=== PATIENT | female | born 1930 | race Caucasian/White ===

== ENCOUNTER 2019-04-01 12:45 | Emergency (ER) | payer BC ==
[2019-04-01 12:54] VITALS: BP 162/69; PULSE 78; TEMP 98; BMI 19.1
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
[2019-04-02] MEDS ORDERED: ACETAMINOPHEN INJECTION 100 ML IVPB ONE (09:46)
== END 2019-04-01 14:43 | disposition home or self-care (01) ==
LOC: JERFT 12:45
DX: M25.552 Pain in left hip (principal); X50.0XXA Overexertion from strenuous movement or load, initial encounter; Y93.E9 Activity, other interior property and clothing maintenance; Y92.018 Other place in single-family (private) house as the place of occurrence of the external cause; Y99.8 Other external cause status; Z87.81 Personal history of (healed) traumatic fracture; I10 Essential (primary) hypertension; E11.9 Type 2 diabetes mellitus without complications; Z79.84 Long term (current) use of oral hypoglycemic drugs; Z79.82 Long term (current) use of aspirin; Z91.041 Radiographic dye allergy status
CPT/HCPCS: 73523-TC-FY; 73552-TC-LT-FY; 99281-25

== ENCOUNTER 2019-04-02 08:25 | Inpatient (IN) | payer BC ==
[2019-04-02] MEDS ORDERED: ACETAMINOPHEN 1000 MG/100 ML VIAL (NON FORMULARY) IVPB ONE (09:25)
[2019-04-02 09:49] LABS: BASO % 0.5 % (0-2.0); EOS % 1.5 % (0-4.5); HEMATOCRIT 38.8 % (32.4-45.2); HEMOGLOBIN 12.7 GM/dL (10.7-15.3); LYMPH % 16.5 % (8-40); MCH 30.4 pg (25.7-33.7); MCHC 32.7 g/dl (32.0-36.0); MEAN PLT VOLUME 7.1 fl (7.5-11.1); MONO % 4.4 % (3.8-10.2); NEUT % 77.1 % (42.8-82.8); PLATELET COUNT 293 K/MM3 (134-434); RBC 4.18 M/mm3 (3.60-5.2); RDW 14.4 % (11.6-15.6); WHITE BLOOD COUNT 6.6 K/mm3 (4.0-10.0)
[2019-04-02 10:26] LABS: ALBUMIN 3.9 g/dl (3.4-5.0); BILIRUBIN,TOTAL 0.4 mg/dL (0.2-1); BLOOD UREA NITROGEN 18.8 mg/dL (7-18); CALCIUM 10.2 mg/dL (8.5-10.1); CREATININE 0.7 mg/dL (0.55-1.3); POTASSIUM 4.1 mmol/L (3.5-5.1)
--- NOTE | 2019-04-02 10:52 | PDOC ---
Documentation entered by Veronica Rich SCRIBE, acting as scribe for Byron Orona MD. Byron Orona MD: This documentation has been prepared by the Layla cheatham Sammi, SCRIBE, under my direction and personally reviewed by me in its entirety. I confirm that the documentation accurately reflects all work, treatment, procedures, and medical decision making performed by me. History of Present Illness - General Chief Complaint: Chronic pain Stated Complaint: LT SIDE PAIN,WEAKNESS Time Seen by Provider: 04/02/19 08:40 - History of Present Illness Initial Comments: 04/02/19 09:28 The patient is an 88 year old female, with a PMH of HTN, HL, DM, L hip fracture (~3 years ago) and R sided sciatica, who presents to the emergency department for evaluation of left hip pain with radiation down the left lower extremity since Sunday. The patient states since being discharged from our ED yesterday, where she was evaluated for similar symptoms, her left hip and leg pain has been progressively worsening. She notes she attempted to get out of bed several times last night to use the bathroom but was having a difficult time, prompting her to put on a diaper. The patient states she attempted to get out of bed with the assistance of her walker this morning and experienced significant pain to her left hip/leg which she presents today for further evaluation. The patient reports taking her tylenol #3 and one dose of prednisone last night with short term relief. Denies trauma or injury. Denies any recent headaches, dizziness, focal weakness or numbness, chest pain, shortness of breath, headaches, abdominal pain, nausea, vomiting, diarrhea, urinary symptoms or lower extremity edema. PCP: Nila Past History - Past Medical History Allergies/Adverse Reactions: Allergies Allergy/AdvReac Type Severity Reaction Status Date / Time Iodinated Contrast Media Allergy Verified 04/01/19 12:54 [IV Dye, Iodine Containing Contrast ] Home Medications: Ambulatory Orders Amlodipine/Valsartan [Exforge 5-160 mg Tablet] 5 mg PO DAILY 10/24/11 Atenolol 50 mg PO DAILY 10/24/11 Metformin HCl [Glucophage Xr] 500 mg PO HS 10/24/11 Aspirin [Acetyl Salicylic Acid] 81 mg PO DAILY #0 tab.chew 10/25/11 Atorvastatin Ca [Lipitor] 20 mg PO HS #0 tablet 10/25/11 Prednisone 10 mg PO BID #6 tablet 04/01/19 COPD: No Diabetes: Yes HTN: Yes - Surgical History GI Surgery: Yes (HX COLOSTOMY) - Psycho Social/Smoking Cessation Hx Smoking Status: No Smoking History: Never smoked Have you smoked in the past 12 months: No Number of Cigarettes Smoked Daily: 0 Information on smoking cessation initiated: No Hx Alcohol Use: No Drug/Substance Use Hx: No Review of Systems - Review of Systems Comments:: 04/02/19 09:30 GENERAL/CONSTITUTIONAL: No fever or chills. No weakness. HEAD, EYES, EARS, NOSE AND THROAT: No change in vision. No ear pain or discharge. No sore throat. GASTROINTESTINAL: No nausea, vomiting, diarrhea or constipation. GENITOURINARY: No dysuria, frequency, or change in urination. CARDIOVASCULAR: No chest pain or shortness of breath. RESPIRATORY: No cough, wheezing, or hemoptysis. MUSCULOSKELETAL: +left hip pain. +left leg pain SKIN: No rash NEUROLOGIC: No headache, vertigo, loss of consciousness, or change in strength/ sensation. *Physical Exam - Vital Signs Last Vital Signs Temp Pulse Resp BP Pulse Ox 97.5 F L 76 19 148/99 98 04/02/19 08:48 04/02/19 08:48 04/02/19 08:48 04/02/19 08:48 04/02/19 08:48 - Physical Exam Comments: 04/02/19 10:21 GENERAL: Awake, alert, and fully oriented, in no acute distress HEAD: No signs of trauma EYES: PERRLA, EOMI, sclera anicteric, conjunctiva clear ENT: Oropharynx clear without exudates. Moist mucosa NECK: Normal ROM, supple, no lymphadenopathy, JVD, or masses LUNGS: Breath sounds equal, clear to auscultation bilaterally. No wheezes, and no crackles HEART: Regular rate and rhythm, normal S1 and S2, no murmurs, rubs or gallops ABDOMEN: Soft, nontender, normoactive bowel sounds. No guarding, no rebound. No masses EXTREMITIES: +limited ROM at L hip 2/2 pain, +ttp to ischium, compartments soft , no ecchymosis, WWP distally NEUROLOGICAL: Normal speech, cranial nerves intact, equal strength and sensation b/l SKIN: Warm, Dry, normal turgor, no rashes or lesions noted. ED Treatment Course - LABORATORY CBC & Chemistry Diagram: 04/02/19 09:38 04/02/19 09:38 - ADDITIONAL ORDERS Additional order review: 04/02/19 09:38 RBC 4.18 MCV 93.0 MCHC 32.7 RDW 14.4 MPV 7.1 L D Neutrophils % 77.1 Lymphocytes % 16.5 D Monocytes % 4.4 Eosinophils % 1.5 Basophils % 0.5 - RADIOLOGY Radiology Studies Ordered: Category Date Time Status PELVIS CT WITHOUT CONTRAST [CT] Stat CT Scan 04/02/19 09:18 Ordered - Medications Given in the ED: ED Medications Discontinued Medications Generic Name Dose Route Start Last Admin Trade Name Freq PRN Reason Stop Dose Admin Acetaminophen 1,000 mg 04/02/19 09:25 04/02/19 09:50 Ofirmev Injection - IVPB 04/02/19 09:26 1,000 mg ONCE ONE Administration Medical Decision Making - Medical Decision Making 04/02/19 10:51 88yo female presents to the emergency department for the second time in 2 days with atraumatic left-sided hip pain. Limited range of motion at the left hip secondary to pain. Differential includes fracture versus sciatica versus arthritis X-ray done in the emergency department yesterday was negative Will obtain CT scan for further evaluation and reassess. IV Tylenol for pain. 04/02/19 13:25 CT negative. Labs within normal limits. Patient reports minimal improvement with IV Tylenol. Physical therapy consulted to evaluate patient. On their evaluation, patient unable to take more than 4 steps with walker without 10 out of 10 pain. Patient is an unsafe discharge. Will give mophine 2mg, admit. [employer]AD[employer] Jesus Alberto paged for admission 04/02/19 15:01 Case discussed with nurse practitioner Jesus Alberto. Patient has been admitted for further management. Case discussed in detail with admitting physician including history, physical exam and ancillary studies. Admitting physician has assumed care for the patient, will follow all pending diagnostics and will complete the evaluation and treatment. Discharge - Discharge Information Problems reviewed: Yes Clinical Impression/Diagnosis: Hip pain Condition: Stable - Admission Yes - Follow up/Referral - Patient Discharge Instructions - Post Discharge Activity
[2019-04-02] MEDS: KETOROLAC TROMETHAMINE 15 MG/ML VIAL IVPUSH PRN ×2 (16:46→22:21)
[2019-04-02] MEDS: HEPARIN NA (PORCINE) 5,000 UNITS/ML 1ML VIAL SQ SCH ×2 (21:20→21:32)
[2019-04-02] MEDS: predniSONE 5 MG TABLET (UD) PO SCH (21:21)
[2019-04-02] MEDS ORDERED: ATORVASTATIN CA 20 MG TABLET (FP) PO SCH (22:00)
[2019-04-02] MEDS ORDERED: PT OWN MED DRAWER 7, Y5N ONE (22:35)
[2019-04-03] MEDS: MELATONIN 5 MG TABLETS PO PRN (02:06)
[2019-04-03 09:06] LABS: BASO % 0.8 % (0-2.0); EOS % 0.3 % (0-4.5); HEMATOCRIT 35.3 % (32.4-45.2); HEMOGLOBIN 11.6 GM/dL (10.7-15.3); LYMPH % 15.1 % (8-40); MCH 30.3 pg (25.7-33.7); MCHC 32.8 g/dl (32.0-36.0); MEAN CELL VOLUME 92.4 fl (80-96); MEAN PLT VOLUME 7.8 fl (7.5-11.1); MONO % 3.8 % (3.8-10.2); PLATELET COUNT 281 K/MM3 (134-434); RBC 3.82 M/mm3 (3.60-5.2); RDW 14.5 % (11.6-15.6); WHITE BLOOD COUNT 7.5 K/mm3 (4.0-10.0)
[2019-04-03] MEDS ORDERED: [UNRECOGNIZED DRUG - OTHER] PO SCH (10:00)
[2019-04-03] MEDS ORDERED: VALSARTAN PO SCH (10:00)
[2019-04-03] MEDS ORDERED: AMLODIPINE PO SCH (10:00)
[2019-04-03] MEDS ORDERED: ASPIRIN COATED 81 MG TABLET.EC PO SCH (10:00)
[2019-04-03] MEDS: predniSONE 5 MG TABLET (UD) PO SCH ×2 (10:24→21:11)
[2019-04-03] MEDS: amLODIPine BESYLATE 5 MG TABLET (FP) PO SCH (10:24)
[2019-04-03] MEDS: VALSARTAN 160 MG TABLET (UD) PO SCH (10:25)
[2019-04-03] MEDS: HEPARIN NA (PORCINE) 5,000 UNITS/ML 1ML VIAL SQ SCH ×3 (10:25→21:10)
[2019-04-03] MEDS: ATENOLOL 50 MG TABLET (FP) PO SCH (10:25)
[2019-04-03 10:50] LABS: ALBUMIN 3.2 g/dl (3.4-5.0); BILIRUBIN,TOTAL 0.5 mg/dL (0.2-1); BLOOD UREA NITROGEN 21.8 mg/dL (7-18); CALCIUM 9.3 mg/dL (8.5-10.1); CREATININE 0.6 mg/dL (0.55-1.3); MAGNESIUM 2.1 mg/dL (1.8-2.4); PHOSPHOROUS 3.2 mg/dL (2.5-4.9); POTASSIUM 4.1 mmol/L (3.5-5.1)
--- NOTE | 2019-04-03 10:52 | HP ---
Admitting History and Physical - Primary Care Physician PCP: Talya Dotson - Admission Chief Complaint: Left Hip Pain History of Present Illness: Patient is an 88 y/o female with past medical history of HTN, HLD, DM, L Hip Fracture (2016), and R Sided Sciatica. Patient states that on Sunday she developed sharp L upper thigh pain radiating down leg accompanied with difficulty ambulating. She says she normally walks with a cane but needed to ambulate with a walker. On Sunday she presented to [facility] ER for LLE pain and Hip /Pelvic and Femur Xray showed no fracture and she was discharged home on medication. After discharge pain did not improve and came back to ER on Sunday with same chief complaint. History Source: Patient Limitations to Obtaining History: No Limitations - Past Medical History Cardiovascular: Yes: HTN, Hyperlipdemia ...: No Endocrine: Yes: Diabetes Mellitus - Smoking History Smoking history: Never smoked Have you smoked in the past 12 months: No Aproximately how many cigarettes per day: 0 - Alcohol/Substance Use Hx Alcohol Use: No - Social History Usual Living Arrangement: Yes: Alone ADL: Independent History of Recent Travel: No Home Medications - Allergies Allergies/Adverse Reactions: Allergies Allergy/AdvReac Type Severity Reaction Status Date / Time Iodinated Contrast Media Allergy Verified 04/01/19 12:54 [IV Dye, Iodine Containing Contrast ] - Home Medications Home Medications: Ambulatory Orders Amlodipine/Valsartan [Exforge 5-160 mg Tablet] 5 mg PO DAILY 10/24/11 Atenolol 50 mg PO DAILY 10/24/11 Metformin HCl [Glucophage Xr] 500 mg PO HS 10/24/11 Aspirin [Acetyl Salicylic Acid] 81 mg PO DAILY #0 tab.chew 10/25/11 Atorvastatin Ca [Lipitor] 20 mg PO HS #0 tablet 10/25/11 Prednisone 10 mg PO BID #6 tablet 04/01/19 Review of Systems - Review of Systems Constitutional: reports: No Symptoms Eyes: reports: No Symptoms HENT: reports: No Symptoms Neck: reports: No Symptoms Cardiovascular: reports: No Symptoms Respiratory: reports: No Symptoms Gastrointestinal: reports: No Symptoms Genitourinary: reports: No Symptoms Breasts: reports: No Symptoms Reported Musculoskeletal: reports: Extremity Pain (LLE) Integumentary: reports: No Symptoms Neurological: reports: No Symptoms Endocrine: reports: No Symptoms Hematology/Lymphatic: reports: No Symptoms Psychiatric: reports: No Symptoms Physical Examination Vital Signs: Vital Signs Temperature 98.1 F 04/03/19 06:00 Pulse Rate 66 04/03/19 06:00 Respiratory Rate 18 04/03/19 06:00 Blood Pressure 139/67 04/03/19 06:00 O2 Sat by Pulse Oximetry (%) 96 04/02/19 15:22 Constitutional: Yes: No Distress, Calm Eyes: Yes: Conjunctiva Clear HENT: Yes: Atraumatic Cardiovascular: Yes: Regular Rate and Rhythm Respiratory: Yes: Regular, CTA Bilaterally Gastrointestinal: Yes: Normal Bowel Sounds, Soft Musculoskeletal: Yes: Muscle Weakness Extremities: Yes: WNL Edema: No Neurological: Yes: Alert, Oriented Psychiatric: Yes: Alert, Oriented Labs: CBC, BMP 04/03/19 08:00 04/03/19 08:00 Imaging - Results Cat Scan: Report Reviewed Problem List - Problems (1) HTN (hypertension) Assessment/Plan: -Amlodipine, Atenolol -low Na diet Code(s): I10 - ESSENTIAL (PRIMARY) HYPERTENSION (2) Hip pain Assessment/Plan: -PT -Ortho consult -Neurology consult -pain control -Pelvic CT scan shows no CT evidence of fracture -Prednisone Code(s): M25.559 - PAIN IN UNSPECIFIED HIP (3) Diabetes mellitus Assessment/Plan: --Metformin -BGM ACHS -ISS Code(s): E11.9 - TYPE 2 DIABETES MELLITUS WITHOUT COMPLICATIONS Assessment/Plan see problem list dvt ppx for d/c SNF vs home services with PT
--- NOTE | 2019-04-03 15:00 | CON.ORTH ---
Consult Reason for Consultation:: left leg pain - Past Medical History Cardio/Vascular: Yes: HTN, Hyperlipdemia ...: No Endocrine: Yes: Diabetes Mellitus - Alcohol/Substance Use Hx Alcohol Use: No - Smoking History Smoking history: Never smoked Have you smoked in the past 12 months: No Aproximately how many cigarettes per day: 0 - Social History ADL: Independent History of Recent Travel: No Home Medications - Allergies Allergies/Adverse Reactions: Allergies Allergy/AdvReac Type Severity Reaction Status Date / Time Iodinated Contrast Media Allergy Verified 04/01/19 12:54 [IV Dye, Iodine Containing Contrast ] - Home Medications Home Medications: Ambulatory Orders Amlodipine/Valsartan [Exforge 5-160 mg Tablet] 5 mg PO DAILY 10/24/11 Atenolol 50 mg PO DAILY 10/24/11 Metformin HCl [Glucophage Xr] 500 mg PO HS 10/24/11 Aspirin [Acetyl Salicylic Acid] 81 mg PO DAILY #0 tab.chew 10/25/11 Atorvastatin Ca [Lipitor] 20 mg PO HS #0 tablet 10/25/11 Prednisone 10 mg PO BID #6 tablet 04/01/19 Physical Exam for Ortho Vital Signs: Vital Signs Temperature 98.3 F 04/03/19 10:00 Pulse Rate 83 04/03/19 10:00 Respiratory Rate 18 04/03/19 10:00 Blood Pressure 165/79 04/03/19 10:00 O2 Sat by Pulse Oximetry (%) 96 04/02/19 15:22 Labs: CBC, BMP 04/03/19 08:00 04/03/19 08:00 - Lower Extremity Hip: Yes: Left, Other (equal limb lengths, mild ttp over GT and abductors, full rom, nvi) Imaging - Results X-ray: Image Reviewed Cat Scan: Report Reviewed, Image Reviewed Assessment/Plan 88 y/o female with past medical history of HTN, HLD, DM, L Hip Fracture (2016), and R Sided Sciatica. Patient states that on Sunday she developed sharp L upper thigh pain radiating down leg accompanied with difficulty ambulating. She says she normally walks with a cane but needed to ambulate with a walker. On Sunday she presented to [facility] ER for LLE pain and Hip/Pelvic and Femur Xray showed no fracture and she was discharged home on medication. After discharge pain did not improve and came back to ER on Sunday with same chief complaint. She was moving an AC unit then 2 days later started having pain shooting down her left LE. Pt currently states that her pain has improved. 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 She denies any numbness/tingling. a/p left hip strain, LS spine DDD xrays show good seating and positioning of prosthesis PT, wbat continue prednisone pain control may benefit from short-term rehab will follow d/w Dr. Mann
[2019-04-03] MEDS: INSULIN SLIDING SCALE (NOVOLOG) 1 VIAL SQ SCH ×2 (17:50→21:12)
[2019-04-03] MEDS ORDERED: PT OWN MED DRAWER 7, Y5N ONE (20:39)
[2019-04-04] MEDS: KETOROLAC TROMETHAMINE 15 MG/ML VIAL IVPUSH PRN ×2 (01:55→22:36)
[2019-04-04] MEDS: MELATONIN 5 MG TABLETS PO PRN (01:56)
[2019-04-04] MEDS: INSULIN SLIDING SCALE (NOVOLOG) 1 VIAL SQ SCH ×4 (06:53→22:36)
--- NOTE | 2019-04-04 09:48 | PN ---
Progress Note (short form) - Note Progress Note: Ortho Pt seen and examined- improving Selected Entries 04/04/19 05:52 Temperature 98.2 F Pulse Rate 64 Respiratory 20 Rate Blood Pressure 146/66 Laboratory Tests 04/03/19 08:00 WBC 7.5 Hgb 11.6 Hct 35.3 Plt Count 281 decr pain, incr rom, nvi a/p PT wbat pain control ok to d/c from ortho pov d/w Dr. Mann
[2019-04-04] MEDS: ATENOLOL 50 MG TABLET (FP) PO SCH (09:57)
[2019-04-04] MEDS: amLODIPine BESYLATE 5 MG TABLET (FP) PO SCH (09:57)
[2019-04-04] MEDS: HEPARIN NA (PORCINE) 5,000 UNITS/ML 1ML VIAL SQ SCH ×2 (09:57→22:36)
[2019-04-04] MEDS: VALSARTAN 160 MG TABLET (UD) PO SCH (09:57)
[2019-04-04] MEDS: predniSONE 5 MG TABLET (UD) PO SCH ×2 (09:57→22:35)
--- NOTE | 2019-04-04 11:42 | DS ---
Physical Examination Vital Signs: Vital Signs Temperature 98.8 F 04/04/19 09:57 Pulse Rate 67 04/04/19 09:57 Respiratory Rate 18 04/04/19 09:57 Blood Pressure 137/73 04/04/19 09:57 O2 Sat by Pulse Oximetry (%) 96 04/02/19 15:22 Findings/Remarks: Laboratory Results - last 24 hr 04/03/19 04/04/19 17:47 05:16 POC Glucometer 147 143 Active Medications Generic Name Dose Route Start Last Admin Trade Name Freq PRN Reason Stop Dose Admin Acetaminophen 650 mg 04/02/19 14:55 Tylenol - PO Q6H PRN PAIN LEVEL 1-5 Amlodipine Besylate 5 mg 04/03/19 10:00 04/04/19 09:57 Norvasc - PO 5 mg DAILY [facility] Administration Atenolol 50 mg 04/03/19 10:00 04/04/19 09:57 Tenormin - PO 50 mg DAILY CJ Administration Heparin Sodium (Porcine) 5,000 unit 04/02/19 22:00 04/04/19 09:57 Heparin - SQ Not Given BID [facility] Insulin Aspart 1 vial 04/03/19 16:30 04/04/19 06:53 Novolog Vial Sliding Scale - SQ Not Given [facility] Protocol Ketorolac Tromethamine 15 mg 04/02/19 14:55 04/04/19 01:55 Toradol Injection - IVPUSH 04/07/19 14:54 15 mg Q6H PRN Administration PAIN LEVEL 6-10 Melatonin 5 mg 04/03/19 01:56 04/04/19 01:56 Melatonin PO 5 mg HS PRN Administration INSOMNIA Metformin HCl 500 mg 04/02/19 22:00 04/03/19 21:11 Glucophage Xr - PO 500 mg HS CJ Administration Prednisone 10 mg 04/02/19 22:00 04/04/19 09:57 Deltasone - PO Not Given BID [facility] Valsartan 160 mg 04/03/19 10:00 04/04/19 09:57 Diovan - PO 160 mg DAILY CJ Administration Constitutional: Yes: No Distress, Calm Eyes: Yes: Conjunctiva Clear HENT: Yes: Atraumatic Cardiovascular: Yes: Regular Rate and Rhythm Respiratory: Yes: Regular, CTA Bilaterally Gastrointestinal: Yes: Normal Bowel Sounds, Soft Musculoskeletal: Yes: Muscle Weakness Extremities: Yes: WNL Edema: No Neurological: Yes: Alert, Oriented Psychiatric: Yes: Alert, Oriented Labs: CBC, BMP 04/03/19 08:00 04/03/19 08:00 Discharge Summary Problems reviewed: Yes Reason For Visit: PAIN OF LEFT HIP Current Active Problems Diabetes mellitus (Acute) HLD (hyperlipidemia) (Acute) HTN (hypertension) (Acute) Hip pain (Acute) Hospital Course: Patient is an 88 y/o female with past medical history of HTN, HLD, DM, L Hip Fracture (2016), and R Sided Sciatica. Patient states that on Sunday she developed sharp L upper thigh pain radiating down leg accompanied with difficulty ambulating. She says she normally walks with a cane but needed to ambulate with a walker. On Sunday she presented to [facility] ER for LLE pain and Hip /Pelvic and Femur Xray showed no fracture and she was discharged home on medication. After discharge pain did not improve and came back to ER on Sunday with same chief complaint. Patient evaluated by PT and only able to ambulate 25 feet. Evaluated by orthopedics and recommend PT and WBAT. Condition: Stable - Instructions Diet, Activity, Other Instructions: Follow up with PMD in 1 week after discharge continue with medication as prescribed low Na/diabetic diet PT fall precautions return to ER if develop severe pain, respiratory distress, chest pain, AMS Referrals: Talya Dotson MD [Primary Care Provider] - Disposition: [facility] F[facility] - Home Medications Comprehensive Discharge Medication List: Ambulatory Orders Amlodipine/Valsartan [Exforge 5-160 mg Tablet] 5 mg PO DAILY 10/24/11 Atenolol 50 mg PO DAILY 10/24/11 Metformin HCl [Glucophage Xr] 500 mg PO HS 10/24/11 Aspirin [Acetyl Salicylic Acid] 81 mg PO DAILY #0 tab.chew 10/25/11 Atorvastatin Ca [Lipitor] 20 mg PO HS #0 tablet 10/25/11 Prednisone 10 mg PO BID #6 tablet 04/01/19
[2019-04-04 15:35] VITALS: BMI 19.1
[2019-04-05] MEDS: INSULIN SLIDING SCALE (NOVOLOG) 1 VIAL SQ SCH ×4 (06:00→22:47)
[2019-04-05] MEDS: VALSARTAN 160 MG TABLET (UD) PO SCH (10:04)
[2019-04-05] MEDS: predniSONE 5 MG TABLET (UD) PO SCH ×2 (10:04→22:43)
[2019-04-05] MEDS: ATENOLOL 50 MG TABLET (FP) PO SCH (10:04)
[2019-04-05] MEDS: amLODIPine BESYLATE 5 MG TABLET (FP) PO SCH (10:04)
[2019-04-05] MEDS: HEPARIN NA (PORCINE) 5,000 UNITS/ML 1ML VIAL SQ SCH ×2 (10:06→22:47)
--- NOTE | 2019-04-05 15:05 | PN ---
Progress Note, Physician Chief Complaint: LLE Pain Difficulty ambulating History of Present Illness: Previous notes and events reviewed awake and alert NAD sts leg pain has improved denies chest pain or SOB - Current Medication List Current Medications: Active Medications Acetaminophen (Tylenol -) 650 mg PO Q6H PRN PRN Reason: PAIN LEVEL 1-5 Amlodipine Besylate (Norvasc -) 5 mg PO DAILY [facility] Last Admin: 04/05/19 10:04 Dose: 5 mg Atenolol (Tenormin -) 50 mg PO DAILY [facility] Last Admin: 04/05/19 10:04 Dose: 50 mg Heparin Sodium (Porcine) (Heparin -) 5,000 unit SQ BID [facility] Last Admin: 04/05/19 10:06 Dose: Not Given Insulin Aspart (Novolog Vial Sliding Scale -) 1 vial SQ ACHS [facility]; Protocol Last Admin: 04/05/19 13:00 Dose: Not Given Ketorolac Tromethamine (Toradol Injection -) 15 mg IVPUSH Q6H PRN PRN Reason: PAIN LEVEL 6-10 Stop: 04/07/19 14:54 Last Admin: 04/04/19 22:36 Dose: 15 mg Melatonin (Melatonin) 5 mg PO HS PRN PRN Reason: INSOMNIA Last Admin: 04/04/19 01:56 Dose: 5 mg Metformin HCl (Glucophage Xr -) 500 mg PO HS [facility] Last Admin: 04/04/19 22:36 Dose: 500 mg Prednisone (Deltasone -) 10 mg PO BID [facility] Last Admin: 04/05/19 10:04 Dose: 10 mg Valsartan (Diovan -) 160 mg PO DAILY [facility] Last Admin: 04/05/19 10:04 Dose: 160 mg - Objective Vital Signs: Vital Signs Temperature 97.4 F L 04/05/19 09:56 Pulse Rate 75 04/05/19 09:56 Respiratory Rate 20 04/05/19 09:56 Blood Pressure 139/74 04/05/19 09:56 O2 Sat by Pulse Oximetry (%) 96 04/02/19 15:22 Constitutional: Yes: No Distress, Calm Eyes: Yes: Conjunctiva Clear HENT: Yes: Atraumatic Cardiovascular: Yes: Regular Rate and Rhythm Respiratory: Yes: Regular, CTA Bilaterally Gastrointestinal: Yes: Normal Bowel Sounds, Soft Musculoskeletal: Yes: Muscle Weakness Extremities: Yes: WNL Edema: No Neurological: Yes: Alert, Oriented Psychiatric: Yes: Alert, Oriented Labs: CBC, BMP 04/03/19 08:00 04/03/19 08:00 Problem List - Problems (1) HTN (hypertension) Assessment/Plan: -Amlodipine, Atenolol -low Na diet Code(s): I10 - ESSENTIAL (PRIMARY) HYPERTENSION (2) Hip pain Assessment/Plan: -PT -WBAT -Ortho on board -pain control -Pelvic CT scan shows no CT evidence of fracture -Prednisone Code(s): M25.559 - PAIN IN UNSPECIFIED HIP (3) Diabetes mellitus Assessment/Plan: -Metformin -BGM ACHS -ISS Code(s): E11.9 - TYPE 2 DIABETES MELLITUS WITHOUT COMPLICATIONS Assessment/Plan see problem list dvt ppx for d/c SNF vs home services with PT
--- NOTE | 2019-04-05 17:20 | PN ---
Progress Note (short form) - Note Progress Note: Ortho Pt seen and examined- improving, awaiting auth for SNF Selected Entries 04/05/19 14:00 Temperature 97.8 F Pulse Rate 68 Respiratory 20 Rate Blood Pressure 154/73 Laboratory Tests 04/03/19 08:00 WBC 7.5 Hgb 11.6 Hct 35.3 Plt Count 281 decr pain, incr rom, nvi a/p PT wbat pain control d/c to SNF once auth re-consult prn d/w Dr. Mann
[2019-04-05] MEDS ORDERED: SIMETHICONE 80 MG TAB.CHEW (FP) PO PRN (17:31)
[2019-04-05] MEDS ORDERED: PT OWN MED DRAWER 7, Y5N ONE (20:57)
[2019-04-05] MEDS: KETOROLAC TROMETHAMINE 15 MG/ML VIAL IVPUSH PRN (22:43)
[2019-04-05] MEDS: MELATONIN 5 MG TABLETS PO PRN (22:43)
[2019-04-06] MEDS: ACETAMINOPHEN 325 MG TABLET (FP) PO PRN (01:47)
--- NOTE | 2019-04-06 08:29 | PN ---
Progress Note (short form) - Note Progress Note: AWAKE ALERT IN PAIN 12/11 AWAITING AUTHORIZATION FOR SNF PLACEMENT CONTINUE CURRENT MANAGEMENT
[2019-04-06] MEDS: VALSARTAN 160 MG TABLET (UD) PO SCH (09:18)
[2019-04-06] MEDS: ATENOLOL 50 MG TABLET (FP) PO SCH (09:18)
[2019-04-06] MEDS: predniSONE 5 MG TABLET (UD) PO SCH ×2 (09:18→21:54)
[2019-04-06] MEDS: amLODIPine BESYLATE 5 MG TABLET (FP) PO SCH (09:18)
[2019-04-06] MEDS: HEPARIN NA (PORCINE) 5,000 UNITS/ML 1ML VIAL SQ SCH ×3 (09:18→21:54)
[2019-04-06] MEDS: INSULIN SLIDING SCALE (NOVOLOG) 1 VIAL SQ SCH ×4 (09:20→21:53)
[2019-04-06] MEDS: MELATONIN 5 MG TABLETS PO PRN (22:01)
[2019-04-06] MEDS: KETOROLAC TROMETHAMINE 15 MG/ML VIAL IVPUSH PRN (22:01)
[2019-04-07] MEDS: ACETAMINOPHEN 325 MG TABLET (FP) PO PRN (02:22)
[2019-04-07] MEDS: KETOROLAC TROMETHAMINE 15 MG/ML VIAL IVPUSH PRN (05:40)
[2019-04-07] MEDS ORDERED: INSULIN (NOVOLOG) ASPART 100 UNITS/ML 10ML VIAL ONE (05:53)
[2019-04-07] MEDS: INSULIN SLIDING SCALE (NOVOLOG) 1 VIAL SQ SCH ×3 (06:29→16:42)
[2019-04-07] MEDS ORDERED: PT OWN MED DRAWER 7, Y5N ONE (09:16)
[2019-04-07] MEDS: VALSARTAN 160 MG TABLET (UD) PO SCH (09:31)
[2019-04-07] MEDS: amLODIPine BESYLATE 5 MG TABLET (FP) PO SCH (09:31)
[2019-04-07] MEDS: predniSONE 5 MG TABLET (UD) PO SCH (09:31)
[2019-04-07] MEDS: HEPARIN NA (PORCINE) 5,000 UNITS/ML 1ML VIAL SQ SCH (09:32)
[2019-04-07] MEDS: ATENOLOL 50 MG TABLET (FP) PO SCH (09:32)
--- NOTE | 2019-04-07 10:27 | PN ---
Progress Note, Physician Chief Complaint: LLE Pain Difficulty ambulating History of Present Illness: Previous notes and events reviewed awake and alert NAD sts leg pain was worse over night denies chest pain or SOB waiting for insurance auth for SNF placement - Current Medication List Current Medications: Active Medications Acetaminophen (Tylenol -) 650 mg PO Q6H PRN PRN Reason: PAIN LEVEL 1-5 Last Admin: 04/07/19 02:22 Dose: 650 mg Amlodipine Besylate (Norvasc -) 5 mg PO DAILY [facility] Last Admin: 04/07/19 09:31 Dose: 5 mg Atenolol (Tenormin -) 50 mg PO DAILY [facility] Last Admin: 04/07/19 09:32 Dose: 50 mg Heparin Sodium (Porcine) (Heparin -) 5,000 unit SQ BID [facility] Last Admin: 04/07/19 09:32 Dose: Not Given Insulin Aspart (Novolog Vial Sliding Scale -) 1 vial SQ ACHS [facility]; Protocol Last Admin: 04/07/19 06:29 Dose: Not Given Ketorolac Tromethamine (Toradol Injection -) 15 mg IVPUSH Q6H PRN PRN Reason: PAIN LEVEL 6-10 Stop: 04/07/19 14:54 Last Admin: 04/07/19 05:40 Dose: 15 mg Melatonin (Melatonin) 5 mg PO HS PRN PRN Reason: INSOMNIA Last Admin: 04/06/19 22:01 Dose: 5 mg Metformin HCl (Glucophage Xr -) 500 mg PO HS [facility] Last Admin: 04/06/19 21:54 Dose: 500 mg Prednisone (Deltasone -) 10 mg PO BID [facility] Last Admin: 04/07/19 09:31 Dose: 10 mg Simethicone (Mylicon -) 80 mg PO QID PRN PRN Reason: gas pain Last Admin: 04/05/19 17:49 Dose: 80 mg Valsartan (Diovan -) 160 mg PO DAILY [facility] Last Admin: 04/07/19 09:31 Dose: 160 mg - Objective Vital Signs: Vital Signs Temperature 98 F 04/07/19 04:00 Pulse Rate 64 04/07/19 04:00 Respiratory Rate 18 04/07/19 04:00 Blood Pressure 152/65 04/07/19 04:00 O2 Sat by Pulse Oximetry (%) 98 04/06/19 21:00 Constitutional: Yes: No Distress, Calm Eyes: Yes: Conjunctiva Clear HENT: Yes: Atraumatic Cardiovascular: Yes: Regular Rate and Rhythm Respiratory: Yes: Regular, CTA Bilaterally Gastrointestinal: Yes: Normal Bowel Sounds, Soft Musculoskeletal: Yes: Muscle Weakness Extremities: Yes: WNL Edema: No Neurological: Yes: Alert, Oriented Psychiatric: Yes: Alert, Oriented Labs: CBC, BMP 04/03/19 08:00 04/03/19 08:00 Problem List - Problems (1) HTN (hypertension) Assessment/Plan: -Amlodipine, Atenolol -low Na diet Code(s): I10 - ESSENTIAL (PRIMARY) HYPERTENSION (2) Hip pain Assessment/Plan: -PT -WBAT -Ortho on board -pain control -Pelvic CT scan shows no CT evidence of fracture -Prednisone Code(s): M25.559 - PAIN IN UNSPECIFIED HIP (3) Diabetes mellitus Assessment/Plan: -Metformin -BGM ACHS -ISS Code(s): E11.9 - TYPE 2 DIABETES MELLITUS WITHOUT COMPLICATIONS Assessment/Plan see probleml list dvt ppx
[2019-04-07 17:14] VITALS: BP 148/81; PULSE 66; TEMP 98.5
== END 2019-04-07 20:15 | DRG 552 ==
LOC: JER 08:25 → JERBED 13:27 → J8W 15:06 → JERBED 15:20 → J8W 15:38
PROVIDERS: ADMIT Family Medicine; ATTEND Family Medicine
DX: M51.37 Other intervertebral disc degeneration, lumbosacral region (principal); I10 Essential (primary) hypertension; E78.5 Hyperlipidemia, unspecified; E11.9 Type 2 diabetes mellitus without complications; M25.559 Pain in unspecified hip; M54.31 Sciatica, right side
CPT/HCPCS: 36415; 72192-TC; 80053; 82962; 83735; 84100; 84436; 84443; 85025; 97116-GP; 99284-25; J0131; J1644